=== PATIENT | female | born 1975 | race Two or more races ===

== ENCOUNTER 2017-02-09 14:38 | Emergency (ER) | payer MEDICAID ==
[~2017-02-09] VITALS: Ht 162.6 cm; Wt 105.2 kg
[~2017-02-09 14:38] MED LIST: ASPI-231 PO; ATOR1TAB PO
[2017-02-09 14:45] VITALS: BP 152/102
== END 2017-02-09 15:12 | disposition left against medical advice (07) ==
LOC: ER 14:45
DX: R42 Dizziness and giddiness (principal); Z53.21 Procedure and treatment not carried out due to patient leaving prior to being seen by health care provider
CPT/HCPCS: 93005